=== PATIENT | male | born 1950 | race Caucasian/White ===

== ENCOUNTER 2017-06-23 18:26 | Emergency (ER) | payer BC, MEDICARE ==
[~2017-06-23 18:26] MED LIST: ADVA100A; ALBU6.7H INH; GUAI100S6 PO; LINE1TAB22 PO; PERC5TAB12 PO
[2017-06-23 18:33] VITALS: BP 136/92; PULSE 83; RESP 17; TEMP 98; O2SAT 97
== END 2017-06-23 21:21 | disposition left against medical advice (07) ==
LOC: NEDAMB 18:26
DX: Z53.21 Procedure and treatment not carried out due to patient leaving prior to being seen by health care provider (principal)
CPT/HCPCS: 99281